=== PATIENT | male | born 2000 | race Caucasian/White ===

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

== ENCOUNTER 2024-12-08 19:52 | Emergency (ER) | payer OTHER ==
[~2024-12-08] VITALS: Ht 182.8 cm; Wt 68.0 kg
[~2024-12-08 19:52] MED LIST changes: +CEPHALEXIN500 M1 PO
[2024-12-08 20:40] LABS: BASO # 0.1 10*3/uL (0.0-0.1); BASO % 2.1 % (0.0-1.0); EOS # 0.2 10*3/uL (0.0-0.4); EOS % 2.8 % (1.0-4.0); MEAN CELL VOLUME 90.2 fl (80.0-94.0); MEAN CORPUSCULAR HGB 30.7 pg (27.0-31.0); MEAN PLATELET VOLUME 7.9 fl (9.6-12.3); MONO # 0.6 10*3/uL (0.1-1.0); MONO % 9.3 % (3.0-9.0); NEUT # 3.4 10*3/uL (2.3-7.9); NEUT % 54.8 % (47.0-73.0); NUCLEATED RED BLOOD CELL 0.0 % (0.0-0.0); NUCLEATED RED BLOOD CELL 0.0 10*3/uL (0.0-0.0); PLATELET COUNT AUTOMATED 413 10*3/uL (130-400); RED CELL DISTRI WIDTH 11.6 % (0-14.5)
[2024-12-08 20:59] LABS: BUN 8 mg/dl (9-23); ETHYL ALCOHOL 12.3 mg/dl (<3)
== END 2024-12-08 22:45 | disposition home or self-care (01) ==
LOC: ED 19:52
PROVIDERS: Internal Medicine
DX: F41.9 Anxiety disorder, unspecified (principal); F31.9 Bipolar disorder, unspecified; F90.9 Attention-deficit hyperactivity disorder, unspecified type

== ENCOUNTER 2024-12-22 01:38 | Emergency (ER) | payer OTHER ==
[2024-12-22] MEDS ORDERED: Ondansetron Hydrochloride 4 MG/2 ML VIAL IV ONE (02:05)
[2024-12-22] MEDS ORDERED: SODIUM CHLORIDE 0.9% 1,000 ML IV ONE (02:05)
[2024-12-22] MEDS ORDERED: Ondansetron4 MG PO (04:22)
== END 2024-12-22 04:37 | disposition home or self-care (01) ==
LOC: ED 01:38
DX: T40.711A Poisoning by cannabis, accidental (unintentional), initial encounter (principal); R11.2 Nausea with vomiting, unspecified; R44.3 Hallucinations, unspecified; Y92.89 Other specified places as the place of occurrence of the external cause